=== PATIENT | female | born 1965 | race Caucasian/White ===

== ENCOUNTER → 2017-01-26 20:23 | Emergency (ER) | payer MEDICAID ==
[~2017-01-26 20:23] MED LIST: SERO300T PO
[2017-01-26 20:28] VITALS: BP 142/89; PULSE 65; RESP 16; TEMP 98.6; O2SAT 96
== END | disposition left against medical advice (07) ==
LOC: EDBD → NED 20:23
DX: Z53.21 Procedure and treatment not carried out due to patient leaving prior to being seen by health care provider (principal)
CPT/HCPCS: 99281

== ENCOUNTER 2017-02-23 21:08 | Emergency (ER) | payer MEDICAID | END 2017-02-23 21:28 | disposition left against medical advice (07) | LOC: NED 21:08 | DX: Z76.89 Persons encountering health services in other specified circumstances (principal) | CPT/HCPCS: 99281 ==